=== PATIENT | female | born 1955 | race Caucasian/White ===

== ENCOUNTER 2017-10-06 09:05 | Outpatient (CLI) | payer BC | END 2017-10-06 09:06 | disposition home or self-care (01) | LOC: BICMAMMO 09:05 | PROVIDERS: ATTEND Family Medicine | DX: Z12.31 Encounter for screening mammogram for malignant neoplasm of breast (principal); Z80.3 Family history of malignant neoplasm of breast | CPT/HCPCS: 77063; 77067 ==

== ENCOUNTER 2019-01-07 13:42 | Outpatient (CLI) | payer BC ==
--- NOTE | 2019-01-07 16:33 | MMO ---
Bilateral MAMMO Bilat Screen [facility]. CLINICAL HISTORY: Patient is 63 years old and is seen for screening. The patient has the following family history of breast cancer: paternal aunt, at age 77. The patient has no personal history of cancer. The patient has a history of right Lumpectomy in 1998 - Benign and bilateral Implants - after 1998. VIEWS: The views performed were: bilateral craniocaudal; bilateral mediolateral oblique; and bilateral Implant displaced with tomosynthesis. FILMS COMPARED: The present examination has been compared to prior imaging studies performed at [facility] on 01/05/2007, 08/17/2015, 08/19/2016 and 10/06/2017. MAMMOGRAM FINDINGS: There are scattered fibroglandular densities. There are no suspicious masses, suspicious calcifications, or new areas of architectural distortion. Normal implants are present. IMPRESSION: THERE IS NO MAMMOGRAPHIC EVIDENCE OF MALIGNANCY. A ROUTINE FOLLOW-UP MAMMOGRAM IN 1 YEAR IS RECOMMENDED. THE RESULTS OF THIS EXAM WERE SENT TO THE PATIENT. ACR BI-RADS Category 1 - Negative MAMMOGRAPHY NOTE: 1. A negative mammogram report should not delay a biopsy if a dominant of clinically suspicious mass is present. 2. Approximately 10% to 15% of breast cancers are not detected by mammography. 3. Adenosis and dense breasts may obscure an underlying neoplasm.
== END 2019-01-07 13:43 | disposition home or self-care (01) ==
LOC: BICMAMMO 13:42
PROVIDERS: ATTEND Family Medicine
DX: Z12.31 Encounter for screening mammogram for malignant neoplasm of breast (principal); Z80.3 Family history of malignant neoplasm of breast; Z98.82 Breast implant status; Z98.890 Other specified postprocedural states
CPT/HCPCS: 77063; 77067

== ENCOUNTER 2020-01-26 09:32 | Outpatient (CLI) | payer MEDICARE, BC ==
--- NOTE | 2020-01-26 10:33 | MMO ---
Bilateral MAMMO Bilat Screen [facility]. CLINICAL HISTORY: Patient is 64 years old and is seen for screening. The patient has the following family history of breast cancer: paternal aunt, at age 77. The patient has no personal history of cancer. The patient has a history of right Excisional Biopsy in 1998 - Benign and bilateral Implants - after 1998. VIEWS: The views performed were: bilateral craniocaudal; bilateral craniocaudal with tomosynthesis; bilateral mediolateral oblique; bilateral mediolateral oblique with tomosynthesis; and bilateral Implant displaced with tomosynthesis. FILMS COMPARED: The present examination has been compared to prior imaging studies performed at [facility] on 08/17/2015, 08/19/2016, 10/06/2017 and 01/07/2019. This study has been interpreted with the assistance of computer-aided detection. MAMMOGRAM FINDINGS: There are scattered fibroglandular densities. There are no suspicious masses, suspicious calcifications, or new areas of architectural distortion. Normal implants are present. IMPRESSION: THERE IS NO MAMMOGRAPHIC EVIDENCE OF MALIGNANCY. A ROUTINE FOLLOW-UP MAMMOGRAM IN 1 YEAR IS RECOMMENDED. THE RESULTS OF THIS EXAM WERE SENT TO THE PATIENT. ACR BI-RADS Category 1 - Negative MAMMOGRAPHY NOTE: 1. A negative mammogram report should not delay a biopsy if a dominant of clinically suspicious mass is present. 2. Approximately 10% to 15% of breast cancers are not detected by mammography. 3. Adenosis and dense breasts may obscure an underlying neoplasm. Reported by: PHILLY REDDING MD Electonically Signed: [id number]
== END 2020-01-26 09:33 | disposition home or self-care (01) ==
LOC: BICMAMMO 09:32
PROVIDERS: ATTEND Family Medicine
DX: Z12.31 Encounter for screening mammogram for malignant neoplasm of breast (principal); Z91.89 Other specified personal risk factors, not elsewhere classified; Z98.82 Breast implant status; Z80.3 Family history of malignant neoplasm of breast
CPT/HCPCS: 77063; 77067

== ENCOUNTER 2020-06-12 07:32 | Outpatient (CLI) | payer MEDICARE, BC ==
[2020-06-12] MEDS ORDERED: Iopamidol-370 76% 500 ML 1 ML ONE (10:06)
--- NOTE | 2020-06-12 10:06 | CT ---
CT CHEST WITH IV CONTRAST: Date: 06/12/2020 PROVIDED CLINICAL HISTORY: Follow-up lung nodule. FINDINGS: Comparison is made with the CT examination performed 02/17/2020 and correlation is made with PET CT d ated 02/24/2020. The heart, pericardium, and great vessels appear unremarkable with the exception of vascular calcific ation. There is no evidence for thoracic lymph node enlargement. The airway appears patent and of nor mal caliber. There is no pleural fluid or pneumothorax apparent. There is a stable stellate density involving the left lower lobe without a discrete nodular component , having demonstrated no FDG avidity on the intervening PET scan. Additional similar stellate/poorly defined parenchymal foci involving the right middle lobe and right lower lobe also appear stable. The re is no evidence for a new nodule. The visualized portions of the upper abdomen demonstrate an unremarkable CT appearance. The osseous s tructures demonstrate no concerning osteoblastic or osteolytic lesions. IMPRESSION: Bilateral pulmonary parenchymal opacities are stable with respect to the prior study. Areas of parenc hymal scarring are favored. A 6 month follow-up chest CT is recommended. POS: TAISHA
== END 2020-06-12 07:33 | disposition home or self-care (01) ==
LOC: BICCT 07:32
PROVIDERS: ATTEND Family Medicine
DX: R91.8 Other nonspecific abnormal finding of lung field (principal)
CPT/HCPCS: 71260; 82565; Q9967

== ENCOUNTER 2020-12-12 07:53 | Outpatient (CLI) | payer MEDICARE, BC ==
[2020-12-12] MEDS ORDERED: Iopamidol-370 76% 500 ML 1 ML ONE (09:05)
== END 2020-12-12 07:54 | disposition home or self-care (01) ==
LOC: BICCT 07:53
PROVIDERS: ATTEND Family Medicine
DX: R91.8 Other nonspecific abnormal finding of lung field (principal)
CPT/HCPCS: 71260; 82565; Q9967

== ENCOUNTER 2021-02-23 09:33 | Outpatient (CLI) | payer MEDICARE, BC | END 2021-02-23 09:34 | disposition home or self-care (01) | LOC: BICMAMMO 09:33 | PROVIDERS: ATTEND Family Medicine | DX: Z12.31 Encounter for screening mammogram for malignant neoplasm of breast (principal); Z98.82 Breast implant status; Z91.89 Other specified personal risk factors, not elsewhere classified; Z80.3 Family history of malignant neoplasm of breast | CPT/HCPCS: 77063; 77067 ==

== ENCOUNTER 2021-12-18 10:08 | Outpatient (CLI) | payer MEDICARE, BC ==
[~2021-12-18 10:08] MED LIST: Iopamidol 370 76% 100 ML VIAL ONE
== END 2021-12-18 10:09 | disposition home or self-care (01) ==
LOC: BICCT 10:08
PROVIDERS: ATTEND Family Medicine
DX: R91.8 Other nonspecific abnormal finding of lung field (principal)
CPT/HCPCS: 71260; 82565

== ENCOUNTER 2022-03-07 09:19 | Outpatient (CLI) | payer MEDICARE, BC | END 2022-03-07 09:20 | disposition home or self-care (01) | LOC: BICMAMMO 09:19 | PROVIDERS: ATTEND Family Medicine | DX: Z12.31 Encounter for screening mammogram for malignant neoplasm of breast (principal); Z91.89 Other specified personal risk factors, not elsewhere classified; Z98.82 Breast implant status; Z80.3 Family history of malignant neoplasm of breast | CPT/HCPCS: 77063; 77067 ==